=== PATIENT | female | born 1970 | race African-American/Black ===

== ENCOUNTER 2024-06-21 16:43 | Emergency (ER) | payer SELFPAY ==
[~2024-06-21] VITALS: Ht 170.2 cm; Wt 82.0 kg
[2024-06-21 16:48] VITALS: BP 169/90; PULSE 96; RESP 16; TEMP 98.4; O2SAT 98
== END 2024-06-21 18:02 | disposition left against medical advice (07) ==
LOC: ER 16:43
DX: R07.89 Other chest pain (principal); F41.9 Anxiety disorder, unspecified; F32.9 Major depressive disorder, single episode, unspecified
CPT/HCPCS: 99283